=== PATIENT | female | born 1985 | race Two or more races ===

== ENCOUNTER 2018-02-06 09:42 | Emergency (ER) ==
[2018-02-06 09:46] VITALS: BP 126/77; TEMP 98.3; BMI 19.0
--- NOTE | 2018-02-06 09:57 | ED.PDOC ---
General ED Provider: Dr. VERENA VELA Chief Complaint: Vaginal Bleeding Stated Complaint: Heavy vaginal bleeding. Saw Dr Zamora yesterday and had pap smear. Has been bleeding fairly heavy since then, states it is heavy like a period. Called back to office and was told probably normal but if she needed checked to to to the ER. Time Seen by Physician: 09:57 Mode of Arrival: Walk-In Information Source: Patient, Family (Mother ) Exam Limitations: No limitations Nursing and Triage Documentation Reviewed and Agree: Yes Does patient meet sepsis criteria?: No If yes, has appropriate treatment been initiated?: No System Inflammatory Response Syndrome: Not Applicable Sepsis Protocol: For patient's 13 years and over: Temp is 96.8 and below OR 101 and greater Pulse >90 BPM Resp >20/minute Acutely Altered Mental Status Are patient's symptoms suggestive of a new infection, such as: -Pneumonia -Skin, Soft Tissue -Endocarditis -UTI -Bone, Joint Infection -Implantable Device -Acute Abdominal Infection -Wound Infection -Meningitis -Blood Stream Catheter Infection -Unknown ACCOUNT SUPPORT REP Complaint Exam - Vaginal Bleeding Complaint/Exam Symptoms Are: Still present Timing: Intermittent Initial Severity: Severe Current Severity: Mild # of Pads Per Hour: 3 (Total in 24 hr) Character: Reports: Bright red Aggravating: Reports: None Alleviating: Reports: None Associated Signs and Symptoms: Reports: Generalized pain (Vaginal) : 0 Abdominal Findings: Present: None Vulva Exam: Present: Labial lesions (Minora tear and fourchette tear/bleeding) Vaginal Exam: Present: Normal Findings Cervical Exam: Present: Normal findings (nulliparous) Differential Diagnoses: Vaginitis (Vagial tear due to recent speculum exam ) Review of Systems - Review Of Systems Constitutional: Reports: No symptoms Eyes: Reports: No symptoms Ears, Nose, Mouth, Throat: Reports: No symptoms Respiratory: Reports: No symptoms Cardiac: Reports: No symptoms GI: Reports: No symptoms : Reports: No symptoms, Pain Musculoskeletal: Reports: No symptoms Skin: Reports: No symptoms Neurological: Reports: No symptoms Endocrine: Reports: No symptoms Hematologic/Lymphatic: Reports: No symptoms All Other Systems: Reviewed and Negative Past Medical History - Past Medical History Previously Healthy: Yes Endocrine: Reports: None Cardiovascular: Reports: None Respiratory: Reports: None Hematological: Reports: None Gastrointestinal: Reports: None Genitourinary: Reports: None Neuro/Psych: Reports: None Musculoskeletal: Reports: None Cancer: Reports: None Last Menstrual Period: last week - Surgical History General Surgical History: Reports: None - Family History Family History: Reports: None - Social History Smoking Status: Never smoker Hx Substance Use: No Alcohol Screening: None Physical Exam - Physical Exam Appearance: Thin Ill-appearing: None Pain Distress: None Eyes: EMMANUEL, EOMI, Conjunctiva clear ENT: Ears normal, Nose normal, Oropharynx normal Respiratory: Airway patent, Breath sounds clear, Breath sounds equal, Respirations nonlabored Cardiovascular: RRR, Pulses normal, No rub, No murmur GI/: Soft, Nontender, No masses, Bowel sounds normal, No Organomegaly Musculoskeletal: Normal strength, ROM intact, No edema, No calf tenderness Skin: Warm, Dry, Normal color Neurological: Sensation intact, Motor intact, Reflexes intact, Cranial nerves intact, Alert, Oriented Psychiatric: Affect appropriate, Mood appropriate Critical Care Note - Critical Care Note Total Time (mins): 0 Course - Course Vital Signs: Temp Pulse Resp BP Pulse Ox 02/06/18 09:42 98.3 F 95 H 18 126/77 99 Departure - Departure Time of Disposition: 10:35 Disposition: HOME SELF-CARE Discharge Problem: Labial tear Condition: Fair Pt referred to PMD for follow-up: Yes IPMP verified?: No Additional Instructions: Moistened wipes follow up pcp prn return ER if needed Allergies/Adverse Reactions: Allergies No Known Allergies Allergy (Verified 02/06/18 09:46) Home Medications: Ambulatory Orders Norgestimate-Ethinyl Estradiol [Tri-Linyah Tablet] 1 each PO DAILY 05/25/15 Disposition Discussed With: Patient, Family
== END 2018-02-06 10:50 | disposition home or self-care (01) ==
LOC: ED 09:42
DX: S31.41XA Laceration without foreign body of vagina and vulva, initial encounter (principal)
CPT/HCPCS: 99282